=== PATIENT | female | born 1990 | race Caucasian/White ===

== ENCOUNTER 2019-06-29 04:22 | Emergency (ER) | payer SELFPAY ==
[~2019-06-29] VITALS: Ht 165.1 cm; Wt 69.4 kg
[~2019-06-29 04:22] MED LIST: IBUP-2213 PO
[2019-06-29 04:25] VITALS: BP 127/90
--- NOTE | 2019-06-29 04:25 | NUR ---
TO BED # 12 AMBULATORY
--- NOTE | 2019-06-29 04:50 | NUR ---
29 YO F BIB SELF PRESENTS TO ED C/O YELLOW VAGINAL DISCHARGE WITH VAGINAL/URINARY BURNING/DISCOMFORT X 5 DAYS. PT DENIES FEVER, N/V, ABD/LOWER BACK PAIN. LAST SEXUAL INTERCOURSE X 2 DAYS AGO. PT STATES HER BOYFRIEND WAS ALSO JUST TREATED FOR STD'S TONIGHT. -- PT AWAKE, A/O X 4. CALM, COOPERATIVE. BEHAVIOR AGE APPROPRIATE. ANSWERS QUESTIONS IS FULL, CLEAR SENTENCES. -- SKIN PINK, WARM, DRY. BREATHING EVEN, UNLABORED. PMH-- DENIES RX-- DENIES
[2019-06-29] MEDS ORDERED: PHENAZOPYRIDINE 100 MG TAB PO ONE (05:15)
[2019-06-29] MEDS ORDERED: cefTRIAXone 250 MG in LIDOCAINE MPF 1% 0.9 ML IM ONE (05:15)
[2019-06-29] MEDS ORDERED: AZITHROMYCIN 250 MG TAB PO ONE (05:15)
[2019-06-29 05:58] VITALS: BP 127/90
--- NOTE | 2019-06-29 05:58 | NUR ---
Patient discharged with v/s stable. Written and verbal after care instructions given and explained. Patient alert, oriented and verbalized understanding of instructions. Ambulatory with steady gait. All questions addressed prior to discharge. ID band removed. Patient advised to follow up with PMD. Rx of keflex, phenazopyridine was given. Patient educated on indication of medication including possible reaction and side effects. Opportunity to ask questions provided and answered. pt stated her pain was 3/10 prior to d/c.
[2019-07-02 06:36] LABS: CHLAMYDIA TRACHOMATIS AMP DNA POSITIVE (NEGATIVE)
== END 2019-06-29 05:58 | disposition home or self-care (01) ==
LOC: MED 04:22
DX: N39.0 Urinary tract infection, site not specified (principal); R30.0 Dysuria; F17.210 Nicotine dependence, cigarettes, uncomplicated; Z79.899 Other long term (current) drug therapy
CPT/HCPCS: 36415; 81002; 81025; 87491; 96372; 99283; J0696; J2001

== ENCOUNTER 2019-10-08 20:14 | Emergency (ER) | payer MEDICAID, OTHER ==
[~2019-10-08] VITALS: Ht 162.6 cm; Wt 69.4 kg
[2019-10-08 20:21] VITALS: BP 128/56
--- NOTE | 2019-10-08 20:30 | NUR ---
pt to radiology via
--- NOTE | 2019-10-08 20:30 | NUR ---
climbing fence 2 days ago/ fell onto right shoulder no obvious deformities or discoloration noted, skin pink cool to touch unable to lift arm ---+2 radial pulse <3 sec cap refill
[2019-10-08] MEDS ORDERED: KETOROLAC 60 MG/2 ML VIAL IM ONE (21:05)
[2019-10-08 21:15] VITALS: BP 128/56
--- NOTE | 2019-10-08 21:16 | NUR ---
Patient discharged with v/s stable. Written and verbal after care instructions given and explained. Patient alert, oriented and verbalized understanding of instructions. Ambulatory with steady gait. All questions addressed prior to discharge. ID band removed. Patient advised to follow up with PMD. Rx of norco/ibuprofen given. Patient educated on indication of medication including possible reaction and side effects. Opportunity to ask questions provided and answered.
== END 2019-10-08 21:16 | disposition home or self-care (01) ==
LOC: MED 20:14
DX: S42.001A Fracture of unspecified part of right clavicle, initial encounter for closed fracture (principal); Z79.899 Other long term (current) drug therapy; X58.XXXA Exposure to other specified factors, initial encounter; Y93.39 Activity, other involving climbing, rappelling and jumping off; Y92.89 Other specified places as the place of occurrence of the external cause; Y99.8 Other external cause status
CPT/HCPCS: 73030; 96372; 99283; J1885

== ENCOUNTER 2019-10-22 00:33 | Emergency (ER) | payer OTHER ==
[~2019-10-22] VITALS: Ht 162.6 cm; Wt 59.0 kg
[2019-10-22 00:33] VITALS: BP 133/93
--- NOTE | 2019-10-22 00:51 | NUR ---
Dr. Simon examining patient.
[2019-10-22 01:55] VITALS: BP 133/93
--- NOTE | 2019-10-22 01:55 | NUR ---
PATIENT BIB [employer]. PATIENT EXAMINED BY DR. LAWSON. PATIENT MEDICALLY CLEARED AND RELEASED IN CUSTODY IN STABLE CONDITION. ORIGINAL PRE-BOOK FORM GIVEN TO [employer] OFFICER.
== END 2019-10-22 01:55 ==
LOC: MED 00:33
DX: S42.001G Fracture of unspecified part of right clavicle, subsequent encounter for fracture with delayed healing (principal); Z79.899 Other long term (current) drug therapy; X58.XXXD Exposure to other specified factors, subsequent encounter
CPT/HCPCS: 99283

== ENCOUNTER 2021-02-26 17:14 | Emergency (ER) | payer OTHER ==
[~2021-02-26] VITALS: Ht 165.1 cm; Wt 71.7 kg
[2021-02-26 17:31] VITALS: BP 156/90
--- NOTE | 2021-02-26 17:34 | NUR ---
to lobby a/w bed ambulatory
--- NOTE | 2021-02-26 17:50 | NUR ---
Patient taken to x-ray via wheelchair by tech.
[2021-02-26] MEDS ORDERED: NAPR-54 PO (19:23)
--- NOTE | 2021-02-26 19:25 | NUR ---
PTS RIGHT ARM WAS PLACED IN A SHOULDER SLING. PTS [facility] [place] WNL.
--- NOTE | 2021-02-26 19:30 | NUR ---
Patient seen and evalauted by Dr. Stockton, no nursing care provided. Patient discharged at this time in stable condition. Discharge instrustions provided. Rx of naproxen given. Medication administration and possible side effects explained. All questions asked and answered prior to departure.
== END 2021-02-26 19:30 | disposition home or self-care (01) ==
LOC: MED 17:14
DX: S43.401A Unspecified sprain of right shoulder joint, initial encounter (principal); S42.001D Fracture of unspecified part of right clavicle, subsequent encounter for fracture with routine healing; X58.XXXA Exposure to other specified factors, initial encounter; Y93.89 Activity, other specified; Y92.89 Other specified places as the place of occurrence of the external cause; Y99.8 Other external cause status
CPT/HCPCS: 73030; 99283

== ENCOUNTER 2021-03-05 05:40 | Emergency (ER) | payer OTHER ==
[~2021-03-05] VITALS: Ht 165.1 cm; Wt 77.1 kg
[~2021-03-05 05:40] MED LIST changes: +NAPR-54 PO
[2021-03-05 05:55] VITALS: BP 153/106
--- NOTE | 2021-03-05 06:01 | NUR ---
patient ambulated to bed 12
--- NOTE | 2021-03-05 06:01 | NUR ---
patient to the bathroom for urine collection
--- NOTE | 2021-03-05 06:10 | NUR ---
30 Y/O FEMALE PATIENT PRESENTS TO ED WITH UTI SYMPTOMS. PT STATES "I FEEL BURNING PAIN WHENEVER I PEE, AND HAVE THE URGENCY TO VOID." DENIES N/V/D; SKIN IS PINK/WARM/DRY; AAOX4 WITH EVEN AND STEADY GAIT; LUNGS CLEAR BL; HR EVEN AND REGULAR; PT DENIES ANY FEVER, CP, SOB, OR COUGH AT THIS TIME; PATIENT STATES PAIN OF 7/10 AT THIS TIME; VSS; PATIENT POSITIONED FOR COMFORT; HOB ELEVATED; BEDRAILS UP X2; BED DOWN. ER MD MADE AWARE OF PT STATUS. NKA PMH: DENIES
--- NOTE | 2021-03-05 06:10 | NUR ---
Note jorge in ED - 03/05/21 at 0639 by SACHI Patient discharged with v/s stable. Written and verbal after care instructions given and explained. Patient verbalized understanding. Ambulatory with steady gait. All questions addressed prior to discharge. Advised to follow up with PMD.
[2021-03-05 06:24] LABS: APPEARANCE,URINE CLOUDY (CLEAR); BILIRUBIN,URINE NEGATIVE (NEGATIVE); BLOOD, URINE TRACE-I (NEGATIVE); COLOR,URINE YELLOW (YELLOW); LEUKOCYTE ESTERASE ,URINE 2+ (NEGATIVE); NITRITE, URINE POSITIVE (NEGATIVE); UGLUCOSE NEGATIVE (NEGATIVE)
[2021-03-05 06:38] LABS: WBC,URINE 16-25 (MOD) /HPF (0-5)
[2021-03-05 06:40] LABS: RBC,URINE 0-5 /HPF (0-5)
[2021-03-05] MEDS ORDERED: ACYCLOVIR 200 MG CAP PO ONE (06:45)
[2021-03-05] MEDS ORDERED: cefTRIAXone 250 MG in LIDOCAINE MPF 1% 0.9 ML IM ONE (06:45)
[2021-03-05] MEDS ORDERED: AZITHROMYCIN 250 MG TAB PO ONE (06:45)
[2021-03-05] MEDS ORDERED: ACYC400T14 PO (06:50)
[2021-03-05] MEDS ORDERED: cefTRIAXone 250 MG VIAL ONE (06:56)
[2021-03-05] MEDS ORDERED: LIDOCAINE MPF 1% 5 ML ONE (06:57)
[2021-03-05] MEDS ORDERED: CEPH250C16 PO (07:09)
--- NOTE | 2021-03-05 07:17 | NUR ---
GIVEN REPORT TO STEVEN BUSTAMANTE. TRNSFER OF CARE AT THIS TIME
[2021-03-05 08:34] VITALS: BP 153/106
--- NOTE | 2021-03-05 08:34 | NUR ---
Patient discharged with v/s stable. Written and verbal after care instructions given and explained. Patient alert, oriented and verbalized understanding of instructions. Ambulatory with steady gait. All questions addressed prior to discharge. ID band removed. Patient advised to follow up with PMD. Rx of Acyclovir and keflex given. Patient educated on indication of medication including possible reaction and side effects. Opportunity to ask questions provided and answered.
== END 2021-03-05 08:34 | disposition home or self-care (01) ==
LOC: MED 05:40
DX: A60.00 Herpesviral infection of urogenital system, unspecified (principal); N39.0 Urinary tract infection, site not specified; N89.8 Other specified noninflammatory disorders of vagina; Z79.899 Other long term (current) drug therapy
CPT/HCPCS: 81001; 81025; 87070; 87086; 87210; 96372; 99283; J0696; J2001

== ENCOUNTER 2021-06-13 23:08 | Emergency (ER) | payer OTHER ==
[~2021-06-13] VITALS: Ht 165.1 cm; Wt 71.7 kg
[~2021-06-13 23:08] MED LIST changes: +ACYC400T14 PO; +CEPH250C16 PO
[2021-06-13 23:15] VITALS: BP 144/78
[2021-06-13] MEDS ORDERED: KETOROLAC 60 MG/2 ML VIAL IM ONE (23:20)
--- NOTE | 2021-06-13 23:20 | NUR ---
TO LOBBY FOLLOWING TRIAGE
--- NOTE | 2021-06-13 23:25 | NUR ---
PT PRESENTED TO ED FOR RIGHT KNEE PAIN, PT STATED "SHE FEEL DOWN ON THE STAIRS" KNEE IS SWOLLEN AND RED, PAIN SCALE OF 8/10 SCALE, PT SHOWING NO SIGNS OF ACUTE DISTRESS PMH: N/A ALLERGIES:NKA
--- NOTE | 2021-06-13 23:26 | NUR ---
PT TAKEN TO XRAY
[2021-06-13] MEDS ORDERED: IBUP-2218 PO (23:43)
--- NOTE | 2021-06-14 00:18 | NUR ---
ADMINISTERED ERMD MED ORDER
[2021-06-14] MEDS ORDERED: CRUT1EAC3 MC (00:20)
== END 2021-06-14 00:30 | disposition home or self-care (01) ==
LOC: MED 23:42
DX: M25.562 Pain in left knee (principal); Z79.899 Other long term (current) drug therapy; W01.0XXA Fall on same level from slipping, tripping and stumbling without subsequent striking against object, initial encounter; Y93.89 Activity, other specified; Y92.89 Other specified places as the place of occurrence of the external cause; Y99.8 Other external cause status
CPT/HCPCS: 73562; 96372; 99283; J1885

== ENCOUNTER 2022-05-07 13:07 | Emergency (ER) | payer OTHER ==
[~2022-05-07] VITALS: Ht 165.1 cm; Wt 69.4 kg
[~2022-05-07 13:07] MED LIST changes: +CRUT1EAC3 MC; +IBUP-2218 PO
[2022-05-07 13:15] VITALS: BP 134/90
--- NOTE | 2022-05-07 13:25 | NUR ---
PT AMBULATED TO ER BED 3
--- NOTE | 2022-05-07 13:39 | NUR ---
31/f walked in c/o rash on vagina onset 2 wks. denies bleeding or discharge from vagina. pmh: denies nka
[2022-05-07] MEDS ORDERED: cefTRIAXone 500 MG in LIDOCAINE MPF 1% 1 ML IM ONE (14:00)
[2022-05-07] MEDS ORDERED: cefTRIAXone 500 MG VIAL ONE (14:27)
[2022-05-07] MEDS ORDERED: LIDOCAINE MPF 1% 5 ML ONE (14:28)
[2022-05-07] MEDS ORDERED: METR-520 PO (16:16)
[2022-05-07] MEDS ORDERED: CEPH-588 PO (16:16)
[2022-05-07] MEDS ORDERED: DOXY-487 PO (16:16)
[2022-05-07] MEDS ORDERED: VALA1TAB39 PO ×2 (16:19→16:23)
[2022-05-07 16:29] VITALS: BP 126/71
--- NOTE | 2022-05-07 16:29 | NUR ---
Patient discharged with v/s stable. Written and verbal after care instructions given and explained. Patient verbalized understanding. Ambulatory with steady gait. All questions addressed prior to discharge. Advised to follow up with PMD.
== END 2022-05-07 16:29 | disposition home or self-care (01) ==
LOC: MED 13:07
DX: N76.0 Acute vaginitis (principal); N39.0 Urinary tract infection, site not specified; R03.0 Elevated blood-pressure reading, without diagnosis of hypertension; Z20.2 Contact with and (suspected) exposure to infections with a predominantly sexual mode of transmission
CPT/HCPCS: 36415; 81002; 81025; 86592; 86631; 86632; 86694; 86703; 87070; 87210; 87491; 96372; 99283; J0696; J2001